=== PATIENT | male | born 1985 | race Two or more races ===

== ENCOUNTER 2024-10-29 09:33 | Outpatient (RCR) | payer MEDICAID, SELFPAY ==
--- NOTE | 2024-10-29 10:03 | PTNOTE_ITS ---
PT OP Initial Eval Patient Information Outpatient Physical Therapy Treatment Date: 10/29/24 Visit Reasons: LEFT SHOULDER PAIN Medical Diagnosis: M25.512 Treatment Dx #1: L shoulder pain Treatment Dx #2: L shoulder instability Start of Care: 10/29/24 Date of Onset: 2 months ago Smoking Status Smoking Status: Never smoker Initial Assessment Subjective: Pt is 39 yr old male who reports long Hx of L shoulder pain since dislocating it many years ago early . Increased pain with work duties, working out, and it feels loose like it's going to pop out like it's hanging and it pops. PMH: allergies Imaging: none Pt goal: to get the shoulder back in Objective: L shoulder AROM: Strength: FF: full 4-/5 limited by pain Abd: 130 deg 4-/5 limited by pain ER: 90 deg with posterior shoulder pain and popping IR: L5 with posterior shoulder pain Cid's: positive Sulcus sign: positive Empty can: positive Assessment: Pt presents with L shoulder popping and positive labral testing consistent with L shoulder instability. Pt will try some trial visits of therapy x3-4 and has poor rehab potential due to time since injury, popping and positive sulcus sign. This isn't a strength problem, it seems to be a labral and ligamentous issue. Pt would benefit from further diagnostic imaging of L shoulder. 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 Ind with HEP 2. Improved strength into FF and abduction to 4/5 3. Tolerate work duties x 1 shift with <=3/10 L shoulder pain Treatment Plan ?1. Manual therapy ? 2. Therex ? 3. Modalities as indicated, moist heat, ice, estim Frequency and Duration: 1-2x a week for 4 trial visits then reassess. If progressing with goals continue up to 12. Certification Dates: 10/29/24 to 01/26/25 Procedure Charges Therapeutic Exercise 30 minutes: Yes
== END 2024-11-11 23:59 | disposition home or self-care (01) ==
LOC: CPTX 09:33
PROVIDERS: PCP Student in an Organized Health Care Education/Training Program; Referring Provider Student in an Organized Health Care Education/Training Program; Visit Provider Student in an Organized Health Care Education/Training Program
DX: M25.512 Pain in left shoulder (principal); M25.312 Other instability, left shoulder
CPT/HCPCS: 97110; 97162

== ENCOUNTER 2024-12-08 15:30 | Outpatient (RCR) | payer MEDICAID, SELFPAY ==
--- NOTE | 2024-11-24 11:11 | PT.ODAYNRPT ---
PT Outpatient Daily Note OP Daily Note Outpatient Physical Therapy Treatment Date: 11/24/24 Visit Reasons: left shoulder pain Subjective: Same as time of evaluation Objective: See F/S for therex Assessment: The L shoulder pops with adduction Plan: Continue per POC Length of Time (minutes) of Treatment: 30 Minutes Procedure Charges Therapeutic Exercise 30 minutes: Yes
--- NOTE | 2024-12-08 18:20 | PT.ODAYNRPT ---
PT Outpatient Daily Note OP Daily Note Outpatient Physical Therapy Treatment Date: 12/08/24 Visit Reasons: left shoulder pain Subjective: The L shoulder feels about the same Objective: See F/S for therex Assessment: The L shoulder pops with adduction Plan: Continue per POC Length of Time (minutes) of Treatment: 30 Minutes Procedure Charges Therapeutic Exercise 30 minutes: Yes
== END 2024-12-12 23:59 | disposition home or self-care (01) ==
LOC: CPTX 15:30
PROVIDERS: PCP Student in an Organized Health Care Education/Training Program; Referring Provider Student in an Organized Health Care Education/Training Program; Visit Provider Student in an Organized Health Care Education/Training Program
DX: M25.512 Pain in left shoulder (principal); M25.312 Other instability, left shoulder
CPT/HCPCS: 97110